=== PATIENT | female | born 1985 | race Caucasian/White ===

== ENCOUNTER 2017-07-08 16:37 | Outpatient (CLI) | payer OTHER ==
[~2017-07-08] VITALS: Ht 160 cm; Wt 72.7 kg
[~2017-07-08 16:37] MED LIST: DESYREL 50MG50 MG PO
[2017-07-08 17:02] VITALS: BP 120/72; PULSE 93; TEMP 98.8
[2017-07-08] MEDS ORDERED: PRILOSEC10 MG PO (17:09)
[2017-07-08] MEDS ORDERED: PRENATAL (17:09)
[2017-07-08] MEDS ORDERED: TUMS500 MG (17:10)
[2017-07-08 17:30] VITALS: BP 112/65; PULSE 88
== END 2017-07-08 18:00 | disposition home or self-care (01) ==
LOC: LDRO 16:37
DX: O36.8130 Decreased fetal movements, third trimester, not applicable or unspecified (principal); Z3A.38 38 weeks gestation of pregnancy

== ENCOUNTER 2017-07-14 00:42 | Inpatient (IN) | payer OTHER ==
[~2017-07-14] VITALS: Ht 160 cm; Wt 73.2 kg
[2017-07-14] VITALS (37 sets, daily range): BP systolic 103–141; BP diastolic 44–90; PULSE 64–121; TEMP 98.5–98.9
[~2017-07-14 00:42] MED LIST changes: +PRENATAL; +PRILOSEC10 MG PO; +TUMS500 MG
[2017-07-14] MEDS ORDERED: PERCOCET 325 MG1 TA2 PO (01:19)
[2017-07-14] MEDS ORDERED: MOTRIN 800800 MG/TAB PO (01:19)
[2017-07-14 01:56] LABS: BASO % 0.4 % (0.0-2.0); EOS # 0.2 (0.0-0.7); GRAN # 6.6 (1.4-6.5); GRAN % 61.4 % (42.2-75.2); LYMPH # 2.8 (1.2-3.4); LYMPH % 25.7 % (20.0-51.0); MEAN CELL VOLUME 94 fl (80.0-100.0); MEAN CORPUSCULAR HGB CONC 34 g/dl (33.0-37.0); MEAN PLATELET VOLUME 10.3 fl (7.4-10.4); MONO # 1.1 (0.1-0.6); MONO % 9.9 % (1.7-9.3); PLATELET COUNT 222 K/mm3 (130-400); WHITE BLOOD COUNT 10.7 K/mm3 (4.8-10.8)
[2017-07-14 01:57] LABS: HEMATOCRIT 34.7 % (37.0-47.0); HEMOGLOBIN 11.9 g/dl (12.5-16.0); MEAN CORPUSCULAR HEMOGLOBIN 32 pg (27.0-31.0)
[2017-07-15 06:15] VITALS: BP 105/66; PULSE 73; TEMP 98.2
== END 2017-07-15 13:25 | disposition home or self-care (01) | DRG 775 ==
LOC: LDRO 00:42 → LDR 01:30 → OB 10:30
PROVIDERS: Obstetrics & Gynecology
PROC: 10E0XZZ Delivery of Products of Conception, External Approach (ICD-10-PCS; principal; 2017-07-14)
PROC: 0HQ9XZZ Repair Perineum Skin, External Approach (ICD-10-PCS; 2017-07-14)
DX: O70.0 First degree perineal laceration during delivery (principal); Z3A.39 39 weeks gestation of pregnancy; Z37.0 Single live birth
CPT/HCPCS: J2405; J2590; J2795; J7120

== ENCOUNTER → 2017-07-18 | Outpatient (CLI) | payer OTHER ==
[~2017-07-18] MED LIST changes: +MOTRIN 800800 MG/TAB PO; +PERCOCET 325 MG1 TA2 PO
== END ==
LOC: OLC 10:51
DX: Z01.89 Encounter for other specified special examinations (principal)